=== PATIENT | male | born 1965 | race Caucasian/White ===

== ENCOUNTER → 2018-03-13 | Outpatient (CLI) | payer OTHER ==
[~2018-03-13] VITALS: Ht 182.9 cm; Wt 113.4 kg
[~2018-03-13] MED LIST: ACYCLOVIR 400400 MG PO; ATENOLOL 25 MG25 M1 PO; FISH OIL500 M2 PO; FLEXERIL PO; FLOMAX0.4 MG PO; GABAPENTIN 100100 MG PO; HYDROCHLOROTH12.5 M1 PO; LISINOPRIL10 MG PO; METFORMIN HCL500 MG PO; NEURONTIN 300300 M1 PO; NORCO 5-325 TA1 EACH PO; PROZAC20 MG PO; TRAZODONE 150150 M1 PO; VICTOZA 3-0.6 MG/0.1 SUBQ
--- NOTE | ~2018-03-13 | HPC ---
[facility] [place] [address] PAIN MANAGEMENT CONSULTATION Name: MICK HO Room #: REG [facility] [place].#: [id number] Admission: 03/13/18 Attend Phys: Rakesh Mojica DO Discharge: Date of : 61 Report #: [id number] THIS REPORT FOR: //name// CC: No Mojica DATE OF SERVICE: 03/13/2018 REFERRING PHYSICIAN: No Browne M.D. CHIEF COMPLAINT: Low back pain and bilateral lower extremity pain with paresthesias. HISTORY OF PRESENT ILLNESS: As you know, the patient is a 53-year-old male with longstanding history of low back pain and bilateral lower extremity pain for which he indicates pain began 2011. The patient denies injury or trauma that may have led to symptom development. The patient has continued to complain of low back pain and ultimately was sent for MRI imaging. The findings of the MRI showed changes at the L4-L5 level and L5-S1 level concerning enough that the patient was referred to our clinic to trial epidural injections. The patient states that his pain has been treated in the past with hydrocodone. This was being provided by his primary care physician and apparently was working well but they have subsequently discontinued this therapy. The patient has been referred to our clinic for evaluation to determine if he might be a candidate for epidural injections. The patient indicates pain is constant, describes the pain as shooting and aching, places current pain score 10/10, daily average at 10/10, worst pain has been is 10/10. The patient states walking and lifting exacerbate symptoms. Pain medications in the form of hydrocodone are the only treatment option that has been effective to date. He has been referred to our service to trial epidural injections under fluoroscopic guidance to determine if his symptoms can be improved with these types of treatments. PAST MEDICAL HISTORY: 1. Diabetes mellitus type 2. 2. Erectile dysfunction. 3. Chronic low back pain. 4. Insomnia. 5. Hypertension. 6. Dyslipidemia. 7. Depression. 8. Benign prostatic hypertrophy. PAST SURGICAL HISTORY: No surgical history provided. [facility] [address] [place] [address] PAIN MANAGEMENT CONSULTATION Name: MICK HO Raghavendra Room #: REG [facility] [place]#: [id number] Admission: 03/13/18 Attend Phys: Rakesh Mojica DO Discharge: Date of : 61 Report #: [id number] SOCIAL HISTORY: The patient admits to tobacco use. Denies IV or illicit drug use. Denies any chronic alcohol use. He is a salesman. He is working, not receiving workmen's compensation nor is he trying to obtain disability benefits. He is unaccompanied today. He is not in litigation in regards to pain. REVIEW OF SYSTEMS: Positive for night sweats, fatigue and weakness, frequent and recurrent headaches, wearing corrective eyewear, double vision, mouth sores, frequent and recurrent coughs, changes in bowel movements, low back pain, bilateral lower extremity pain, tobacco habituation, asthma, hypertension and diabetes mellitus type 2. All other review of systems negative per 12-point review of systems other than those listed in history of present illness. PAIN SCORE: Pain impact score 62/70, severe, near complete interference of daily activities secondary to pain. ALLERGIES: No known drug allergies. CURRENT MEDICATIONS: Gabapentin 100 mg 2 tabs 3 times a day, fluoxetine 20 mg once a day, acyclovir 400 mg once a day, tamsulosin 0.4 mg once a day, Victoza 0.6 mg/0.1 mL per day, metformin 500 mg 3 times a day, atenolol 25 mg per day, hydrochlorothiazide 12.5 mg per day and lisinopril 10 mg per day. IMAGING DATA: MRI of the lumbar spine obtained on 01/02/2018 shows L1-L2 with a small broad-based disk bulge, no central canal neural foraminal stenosis; L2-L3, small broad-based disk bulge, no central canal neural foraminal stenosis; L3-L4, no disk bulge, mild ligamentum flavum hypertrophy, mild narrowing of the central canal, mild narrowing of both neural foramen; L4-L5, moderate broad-based disk bulge, mild ligamentum flavum hypertrophy, moderate narrowing of the central canal, mild narrowing of the left neural foramen, right neural foramen is patent and L5-S1, moderate sized broad-based disk bulge, loss of disk height, spinal canal is patent and neural foramen is patent. PHYSICAL EXAMINATION: VITAL SIGNS: Blood pressure 119/75, pulse 87, respiratory rate 16 and unlabored, the patient is 96% on room air, height 6 feet tall, weight 250 pounds and BMI calculated 33.9. GENERAL: Well-developed, well-nourished, well-hydrated exogenously obese 53-year-old male. He appears his stated age, placing current pain score at 10/10. HEENT: Normocephalic and atraumatic. Pupils equal, round and reactive to light. Extraocular muscles are intact. Sclerae nonicteric without injection. NEUROLOGICAL: Cranial nerves 2 through 12 grossly intact. Speech is fluent. The patient deemed a fair historian. LUNGS: Clear. No wheeze, rhonchi or rales. CARDIOVASCULAR: Regular. No appreciable gallop and no rub. [address] [address] PAIN MANAGEMENT CONSULTATION Name: MICK HO Room #: REG [facility]#: [id number] Admission: 03/13/18 Attend Phys: Rakesh Mojica DO Discharge: Date of : 61 Report #: [id number] ABDOMEN: Soft and obese. Normoactive bowel sounds. EXTREMITIES: Show no clubbing, no cyanosis and no edema. MUSCULOSKELETAL: Lower extremity strength appears equal and symmetrical 5/5. He is intact to light touch from L1 through S2 dermatomes. Seated straight leg raising negative. Supine straight leg raising positive, more on the right. Christina's test negative. Modified Gaenslen's positive for axial low back pain. Ankle clonus negative. Babinski is negative. Gait mildly antalgic favoring right lower extremity over left. Lumbar provocation including extension, rotation, lateral flexion all intensify axial back pain, no radiation of symptoms. ASSESSMENT: 1. Symptomatic lumbar radiculopathy. 2. Spinal stenosis of the lumbar spine. 3. Displacement of the lumbar intervertebral disk with radiculopathy. 4. Lumbosacral spondylosis with radiculopathy. 5. Neural foraminal stenosis of lumbar spine. 6. Facet arthropathy of the lumbar spine. 7. Chronic intractable pain. PLAN: 1. The patient has been referred to our service by her primary care physician to be evaluated for possible lumbar epidural injection. It does appear the patient would be a good candidate for lumbar epidural injections, but we did discuss with the patient today. Other options for treatment given the findings on the MRI, which shows moderate central canal stenosis, L4-L5. Following treatments were discussed with the patient. We discussed physical therapy, stretching exercise, core strengthening and concerted effort at weight loss. The patient could lose approximately 50 pounds, which equates to the average weight of a first grader and this would reduce the amount of pressure the patient experiences on the back on a daily basis and improve pain. We discussed medication management, escalating his dose of gabapentin and providing a nonsteroidal anti-inflammatory for pain control. We discussed lumbar epidural injections for which the patient was referred to our clinic, spinal cord stimulator therapy and surgical options. After reviewing the risks and benefits of all the proposed treatment options and after a very long discussion about his MRI and the findings therein and how they correlate with symptoms, the patient chose to begin with an epidural injection. 2. The patient will return tomorrow, 03/14/2018 at 8:00 a.m. to undergo an epidural injection under fluoroscopic guidance. We have made the appointment for tomorrow as the patient had issues he had to deal with this evening and could not delay to recover from the injection. He will be seen tomorrow at 8:00 a.m. to undergo the first in a series of epidural injections per the request of Dr. Browne. 3. No medication changes made at today's visit. Recommend the patient to continue current medical therapy as previously prescribed. The patient [address] [address] PAIN MANAGEMENT CONSULTATION Name: MICK HO Room #: REG [facility] [place]#: [id number] Admission: 03/13/18 Attend Phys: Rakesh Mojica DO Discharge: Date of : 61 Report #: [id number] indicates that he was receiving good benefit with hydrocodone. We will defer to the primary team who is writing for this medication if they wish to initiate or continue this therapy option. 4. We will keep you apprised the patient's response to epidural injections and any suggestions and treatment changes deemed necessary to address his low back pain and lumbar radicular symptoms secondary to the spinal stenosis ta the L4-L5 level. Again, we wish to thank you for the opportunity to see the patient in consultation. <ELECTRONICALLY SIGNED> By: Rakesh Mojica DO 03/14/18 0818 [id number] Rakesh Mojica DO /nt
[2018-03-13 15:08] VITALS: BP 119/75
== END ==
LOC: PAIN
DX: M47.27 Other spondylosis with radiculopathy, lumbosacral region (principal); M48.062 Spinal stenosis, lumbar region with neurogenic claudication; M51.16 Intervertebral disc disorders with radiculopathy, lumbar region; M12.88 Other specific arthropathies, not elsewhere classified, other specified site; G89.4 Chronic pain syndrome

== ENCOUNTER → 2018-03-14 | Outpatient (CLI) | payer OTHER ==
[~2018-03-14] VITALS: Ht 182.9 cm; Wt 113.4 kg
--- NOTE | ~2018-03-14 | HPC ---
[address] [place] [address] PAIN MANAGEMENT CONSULTATION Name: MICK HO Room #: REG [facility]#: [id number] Admission: 03/14/18 Attend Phys: Rakesh Mojica DO Discharge: Date of : 61 Report #: [id number] THIS REPORT FOR: //name// CC: No Mojica DATE OF SERVICE: 03/14/2018 REFERRING PHYSICIAN: No Browne MD CHIEF COMPLAINT: Low back pain, bilateral lower extremity pain with paresthesias. HISTORY OF PRESENT ILLNESS: As you know, the patient is a 53-year-old male referred to our service for suspected lumbar radiculopathy. The patient was seen in consultation yesterday and provided today's appointment to undergo a lumbar epidural injection under fluoroscopic guidance. The patient returns today with pain level of 6/10, pain is exacerbated with walking and lifting, improves with relaxation, repositioning, and medications. He returns to undergo the first in a series of epidural injections to address lumbar radicular symptoms. He is denying any changes in medical history since our visit of yesterday. He has suffered no new injuries and no new traumas. ALLERGIES: No known drug allergies. CURRENT MEDICATIONS: Gabapentin 100 mg 2 tabs 3 times a day, fluoxetine 20 mg per day, acyclovir 400 mg per day, tamsulosin 0.4 mg once a day, Victoza 0.6 mg/0.1 mL per day, metformin 500 mg 3 times a day, atenolol 25 mg per day, hydrochlorothiazide 12.5 mg once a day, and lisinopril 10 mg per day. SOCIAL HISTORY: The patient uses tobacco, denies IV or illicit drug use, denies any chronic alcohol use. He is employed as a salesman. He is working, not receiving workmen's compensation, unaccompanied today. IMAGING: No new imaging available. PHYSICAL EXAMINATION: VITAL SIGNS: Blood pressure 147/92, pulse is 89, respiratory rate 16 and unlabored, the patient is 94% on room air, height 6 feet tall, weight 250 pounds, and BMI calculated 33.9. GENERAL: Well-developed, well-nourished, well-hydrated 53-year-old male, he appears his stated age, he is placing current pain score at 6/10. HEENT: Normocephalic, atraumatic. Pupils are equal, round, and reactive to light. EXTREMITIES: Show no clubbing, no cyanosis, [place] [address] PAIN MANAGEMENT CONSULTATION Name: MICK HO Room #: REG [facility].#: [id number] Admission: 03/14/18 Attend Phys: Rakesh Mojica DO Discharge: Date of : 61 Report #: [id number] MUSCULOSKELETAL: Seated straight leg raising negative. Supine straight leg raising positive on the right. Christina's test negative. Modified Gaenslen's positive for axial low back pain. Gait mildly antalgic favoring right lower extremity over left. ASSESSMENT: 1. Symptomatic lumbar radiculopathy. 2. Spinal stenosis of lumbar spine. 3. Displacement of lumbar intervertebral disk with radiculopathy. 4. Lumbosacral spondylosis with radiculopathy. 5. Neural foraminal stenosis of the lumbar spine. 6. Facet arthropathy of the lumbar spine. 7. Chronic intractable pain. PLAN: 1. The patient returns today in followup visit to undergo epidural injection under fluoroscopic guidance. The patient was unable to undergo the procedure yesterday due to scheduling conflicts. He returns today in followup visit requesting this epidural injection. We have advised the patient of the risks and benefits of the procedure, these risks include, but are not necessarily limited to bleeding, bruising, infection, worsening of pain, no relief of pain, also risk of temporary or permanent muscle weakness, temporary or permanent nerve damage, possible paralysis and . The patient states understood and wished to proceed. 2. No medication changes were made at today's visit, the patient to continue current medical therapy as previously prescribed. 3. We will see the patient back in followup visit in 31 days. At that time, we will review the efficacy of today's lumbar epidural injection and determine if next in the series would be recommended. PROCEDURE NOTE DESCRIPTION OF PROCEDURE: L5-S1 right paramedian epidural steroid injection under fluoroscopic guidance. This is the first procedure of the first series that the patient is undergoing. After obtaining written consent, the patient was taken back to the fluoroscopy suite, placed in a prone position with pillow under the abdomen to decrease lumbar lordosis. The skin overlying the lumbosacral area was then prepped and draped in aseptic fashion. The L5-S1 vertebral interspace was then identified by AP fluoroscopy. The skin and subcutaneous tissue overlying the target site of injection was anesthetized with 3 mL 1% lidocaine. A 20-gauge 3-1/2-inch Tuohy needle was then advanced under fluoroscopic guidance towards the epidural space using a right paramedian approach. The epidural [address] [address] PAIN MANAGEMENT CONSULTATION Name: MICK HO Room #: REG [facility]#: [id number] Admission: 03/14/18 Attend Phys: Rakesh Mojica DO Discharge: Date of : 61 Report #: [id number] space was identified using loss of resistance to air technique. After negative aspiration for heme or cerebrospinal fluid, a total of 1 mL of Omnipaque was injected. A lumbar epidurogram was confirmed using both AP and lateral fluoroscopy. After negative aspiration for heme or cerebrospinal fluid, 5 mL of a solution containing 2 mL 40 mg per mL, 80 mg total triamcinolone, 3 mL lidocaine 1% was injected in increments. Contrast spread was noted posterior epidural space. The needle was then retracted approximately half way and needle tract flushed with 1 mL of 1% lidocaine. Needle was then removed. There were no apparent sensory or motor deficits in the lower extremity following the procedure. A sterile bandage was placed over the injection site. The heart rate, pulse, oximetry and blood pressure were continuously monitored after the procedure. There were no apparent complications. The patient tolerated the procedure well and was carefully escorted to the recovery room in stable condition. There were no apparent complications. After meeting discharge criteria, the patient was then discharged home. By: [id number] Rakesh Mojica DO /nt
[2018-03-14 08:11] VITALS: BP 147/92
== END | disposition home or self-care (01) ==
LOC: PAIN 07:22
DX: M51.16 Intervertebral disc disorders with radiculopathy, lumbar region (principal); M48.061 Spinal stenosis, lumbar region without neurogenic claudication; M47.27 Other spondylosis with radiculopathy, lumbosacral region; M46.96 Unspecified inflammatory spondylopathy, lumbar region; G89.29 Other chronic pain; F17.210 Nicotine dependence, cigarettes, uncomplicated; Z79.899 Other long term (current) drug therapy; Z98.890 Other specified postprocedural states